=== PATIENT | male | born 1970 | race Caucasian/White ===

== ENCOUNTER → 2024-02-04 06:25 | Day surgery (SDC) | payer BC, SELFPAY | LOC: GI 06:25 | PROVIDERS: ATTENDING PHYSICIAN Specialist | DX: R13.10 Dysphagia, unspecified (principal); R12 Heartburn; K22.89 Other specified disease of esophagus; K20.80 Other esophagitis without bleeding | CPT/HCPCS: 43239; 88305 ==

== ENCOUNTER → 2025-06-27 07:04 | Outpatient (REF) | payer OTHER, SELFPAY | LOC: HWRCS 07:04 | PROVIDERS: ATTENDING PHYSICIAN Internal Medicine Critical Care Medicine; FAMILY PHYSICIAN Family Medicine | DX: R91.1 Solitary pulmonary nodule (principal); R06.02 Shortness of breath | CPT/HCPCS: 71250; 93306 ==

== ENCOUNTER 2025-07-07 06:20 | Day surgery (SDC) | payer OTHER, SELFPAY | END 2025-07-07 15:08 | disposition home or self-care (01) | LOC: GI 06:20 | PROVIDERS: ATTENDING PHYSICIAN Specialist | DX: Z12.11 Encounter for screening for malignant neoplasm of colon (principal); Z86.0101 Personal history of adenomatous and serrated colon polyps | CPT/HCPCS: G0105 ==

== ENCOUNTER → 2025-07-14 12:05 | Outpatient (REF) | payer OTHER, SELFPAY | LOC: DHSLP 12:05 | PROVIDERS: ATTENDING PHYSICIAN Internal Medicine Critical Care Medicine; FAMILY PHYSICIAN Family Medicine | DX: G47.33 Obstructive sleep apnea (adult) (pediatric) (principal) | CPT/HCPCS: 95800 ==